=== PATIENT | female | born 1950 | race Caucasian/White ===

== ENCOUNTER → 2017-01-18 | Outpatient (CLI) | payer OTHER ==
[~2017-01-18] MED LIST: ALBUAER19 INH; ASPI-232 PO; BENZ100C84 PO; CALC-20 PO; CARV3.122 PO; CHOL1000 PO; CYCL10TA6 PO; CYCL5TAB PO; DICL1GEL12 TOP; FLUT0.0529 NAE; FLUT0.15 NAE; GABA-113 PO; HYDR25TA4 PO; INSDGI SC; LISI-729 PO; LYSI500T4 PO; MEGA RED PO; METF1000 PO; MULT-884 PO; NF34 TOP; NVLG SC; OMEP40CA PO; OMEP40CA41 PO; REPA2TAB12 PO; TRAM-10 PO; VALA1TAB31 PO; VNTHFA/IN INH
--- NOTE | 2017-01-18 13:05 | MAMMOGRAPHY REPORT ---
BILATERAL DIGITAL SCREENING MAMMOGRAM WITH CAD: 01/18/2017 CLINICAL HISTORY: Routine screening. Patient has no complaints. TECHNIQUE: Current study was also evaluated with a Computer Aided Detection (CAD) system. Bilatera l CC and MLO and XCCL views were obtained. COMPARISON: Comparison is made to exams dated: 01/13/2016 mammogram, 12/15/2014 mammogram, 12/12/2013 mammogram, 12/09/2012 mammogram, 12/04/2011 mammogram, and 12/01/2010 mammogram - [facility] enter. BREAST COMPOSITION: The tissue of both breasts is almost entirely fatty. FINDINGS: No suspicious masses, calcifications, or areas of architectural distortion are noted in e ither breast. There has been no significant interval change compared to prior exams. Scattered bilat eral benign-appearing calcifications are not significantly changed. IMPRESSION: ACR BI-RADS CATEGORY 2: BENIGN There is no mammographic evidence of malignancy. A 1 year screening mammogram is recommended. The p atient will receive written notification of the results. Approximately 10% of breast cancers are not detected with mammography. A negative mammographic repor t should not delay biopsy if a clinically suggestive mass is present. Sury Whalen M.D. /:01/18/2017 11:29:32 Bdr: Chaya MARTINEZ(Marlon)(Romeo), [facility] letter sent: Normal 1/2 BI-RADS Code: ACR BI-RADS Category 2: Benign
== END | disposition home or self-care (01) ==
LOC: C.MAMM 10:54
PROVIDERS: ATTEND Physician Assistant
DX: Z12.31 Encounter for screening mammogram for malignant neoplasm of breast (principal)

== ENCOUNTER → 2017-02-27 | Outpatient (CLI) | payer OTHER | END | disposition home or self-care (01) | LOC: C.RDSM 13:42 | PROVIDERS: ATTEND Physical Medicine & Rehabilitation Sports Medicine | DX: M25.561 Pain in right knee (principal) ==

== ENCOUNTER → 2017-07-12 | Day surgery (SDC) | payer OTHER ==
[2017-07-02 10:28] VITALS: Ht 165.1 cm; Wt 121.4 kg
[~2017-07-12] VITALS: Ht 165.1 cm; Wt 121.4 kg
[~2017-07-12] MED LIST changes: -ALBUAER19 INH; +BUPIVACAINE 0.25% 2.5MG/ML PF 10 ML VIAL ONE; -CYCL10TA6 PO; -FLUT0.0529 NAE; +LIDOCAINE HCL 1% MPF 5 ML VIAL ONE; -OMEP40CA PO; -REPA2TAB12 PO
--- NOTE | 2017-07-12 14:08 | History & Physical Bridge - SC ---
H&P Re-Evaluation Bridge Note: I have examined the patient, reviewed the History & Physical and in the interval since the performance of the History & Physical I have noted the following changes of clinical significance: No changes noted
[2017-07-12 14:40] VITALS: TEMP 36.6
[2017-07-12 14:56] VITALS: BP 153/85; PULSE 70; O2SAT 96
--- NOTE | 2017-07-12 14:57 | OPERATIVE REPORT ---
DATE OF OPERATION: 07/12/2017 PREOPERATIVE DIAGNOSIS: Lumbar spondylolisthesis L3-4, chronic low back pain, bilateral L4-L5 facet arthropathy. POSTOPERATIVE DIAGNOSIS: Same. PROCEDURE: Bilateral L4-L5 medial branch blocks under fluoroscopic guidance. SURGEON: Dr. Sam Elizondo. INDICATIONS: The patient is a 66-year-old white female who presents today with chronic low back pain and it is felt to be caused by a facet arthropathy which was noticeable on MRI at L4-L5. She presents today for medial branch blocks to confirm this is indeed the pain generator of the pain in her back. She notes some improvement in pain with the use of the Warm and Form brace. PHYSICAL EXAMINATION: GENERAL: Pleasant female seated comfortably. MUSCULOSKELETAL: She has tenderness to palpation at L4-L5, worse with extension. She has no radiating pain. No focal weakness. Negative Costa sign of her right upper extremity. CONSENT: Verbal and written consent was obtained from the patient. Risks and benefits were reviewed. Risks include but are not limited to abscess and allergic reaction. The patient wishes to proceed. PROCEDURE: The patient was taken back to the special procedures room of the [facility]. She was maintained in a prone position. Backside was cleansed with Betadine x3 and a dry sterile dressing was applied. Fluoroscope was used to identify the left L4 transverse process junction and the left L5 transverse process junction. The overlying skin was anesthetized with 1.25 mL of lidocaine 1% with a 25 gauge 1.5-inch needle. A 22 gauge 5 inch Tuohy needle was then directed down to the target, the L4 transverse process junction and the L5 transverse process junction under fluoroscopic guidance. She then underwent injection after negative aspiration, 1 mL of bupivacaine 0.25% at each site. Then, the right L4 transverse process junction and the right L5 transverse process junctions were fluoroscopically identified. Overlying skin was anesthetized with 1.25 mL of lidocaine 1% with a 25 gauge 1.5-inch needle. A 22 gauge 5 inch needle was then directed down to each bony target at the right L4 transverse process junction and the right L5 transverse process junction and then anesthetized with 1 mL of bupivacaine 0.25%. Injection was well tolerated. DISPOSITION: 1. The patient is taken out into the discharge recovery area where she will be discharged home once discharge criteria have been met. 2. Follow up in the [facility] office in 2-4 weeks. I attest to the content of the Intraoperative Record and any orders documented therein. Any exception s are noted below.
--- NOTE | 2017-07-12 15:08 | Discharge Instructions ---
Discharge Instructions Date of Service Jul 12, 2017. Visit Reason for Visit: Lumbar Spondylosis Discharge Discharge Diagnosis / Problem: low back pain Discharge Goals Goal(s): Decrease discomfort, Improve function Activity Recommendations Activity Limitations: resume your previous activity Anesthesia . Post Anesthesia Instructions: If you have had General Anesthesia or IV Sedation: * Do not drive today. * Resume driving when surgeon permits. * Do not make important decisions or sign legal documents today. * Call surgeon for: 1. Temperature elevations greater than 101 degrees F. 2. Uncontrollable pain. 3. Excessive bleeding. 4. Persistent nausea and vomiting. 5. Medication intolerance (nausea, vomiting or rash). * For nausea and vomiting use only clear liquids such as: tea, soda, bouillon until nausea subsides, then gradually increase diet as tolerated. * If you have any concerns or questions, call your surgeon's office. If physician is unavailable and it is an emergency, call 911 or go to the nearest emergency room. . Diet Recommendations Recommended Home Diet: resume previous diet Procedures Procedures Performed: BILATERAL L4-5 MEDIAL BRANCH BLOCKS Pending Studies Studies pending at discharge: no Medical Emergencies . Who to Call and When: Medical Emergencies: If at any time you feel your situation is an emergency, please call 911 immediately. . Non-Emergent Contact Non-Emergency issues call your: Specialist . . "Provider Documentation" section prepared by Sam Elizondo. .
== END | disposition home or self-care (01) ==
LOC: X.SURG 13:24
PROVIDERS: ATTEND Physical Medicine & Rehabilitation
DX: M43.16 Spondylolisthesis, lumbar region (principal); G89.29 Other chronic pain; M54.5 Low back pain; M46.96 Unspecified inflammatory spondylopathy, lumbar region; M47.22 Other spondylosis with radiculopathy, cervical region; E11.9 Type 2 diabetes mellitus without complications

== ENCOUNTER → 2017-09-20 | Day surgery (SDC) | payer OTHER ==
[2017-08-20 13:50] VITALS: Ht 165.1 cm; Wt 121.4 kg
[~2017-09-20] VITALS: Ht 165.1 cm; Wt 121.4 kg
[~2017-09-20] MED LIST changes: -LIDOCAINE HCL 1% MPF 5 ML VIAL ONE; +LIDOCAINE MPF 1% INJ 30 ML SDV (L&D) INFIL ONE
[2017-09-20 13:53] VITALS: TEMP 36.8
--- NOTE | 2017-09-20 14:01 | Discharge Instructions ---
Discharge Instructions Date of Service Sep 20, 2017. Visit Reason for Visit: Low Back Pain Discharge Discharge Diagnosis / Problem: low back pain Discharge Goals Goal(s): Decrease discomfort, Improve function Activity Recommendations Activity Limitations: resume your previous activity Anesthesia . Post Anesthesia Instructions: If you have had General Anesthesia or IV Sedation: * Do not drive today. * Resume driving when surgeon permits. * Do not make important decisions or sign legal documents today. * Call surgeon for: 1. Temperature elevations greater than 101 degrees F. 2. Uncontrollable pain. 3. Excessive bleeding. 4. Persistent nausea and vomiting. 5. Medication intolerance (nausea, vomiting or rash). * For nausea and vomiting use only clear liquids such as: tea, soda, bouillon until nausea subsides, then gradually increase diet as tolerated. * If you have any concerns or questions, call your surgeon's office. If physician is unavailable and it is an emergency, call 911 or go to the nearest emergency room. . Diet Recommendations Recommended Home Diet: no limitations Procedures Procedures Performed: Bilateral L4-5 Radio Frequency Denervation Pending Studies Studies pending at discharge: no Medical Emergencies . Who to Call and When: Medical Emergencies: If at any time you feel your situation is an emergency, please call 911 immediately. . Non-Emergent Contact Non-Emergency issues call your: Specialist . . "Provider Documentation" section prepared by Sam Elizondo. .
[2017-09-20 14:09] VITALS: BP 163/85; PULSE 64; O2SAT 95
--- NOTE | 2017-09-20 14:28 | OPERATIVE REPORT ---
DATE OF OPERATION: 09/20/2017 PREOPERATIVE DIAGNOSIS: Lumbar spondylolisthesis, lumbar facet joint pain bilaterally L4-L5. POSTOPERATIVE DIAGNOSIS: Same. PROCEDURE: Bilateral L4-L5 radiofrequency facet denervation under fluoroscopic guidance. INDICATIONS: The patient is a 66-year-old white female who underwent branch blocks and noticed that she had a positive diagnostic response to the branch blocks. The pain has returned and is problematic to her. She presents today for denervation after a diagnostic confirmation that this indeed generates significant pain in the back for her. PHYSICAL EXAMINATION: Pleasant female seated comfortably. She has some point tenderness to palpation of her lower lumbar spine. She has no issues with forward flexion or extension. She has normal motor examination and sensory examination of her lower extremities. CONSENT: Verbal and written consent was obtained from the patient. Risks and benefits were reviewed. Risks include but are not limited to abscess, allergic reaction and denervation. She wishes to proceed. PROCEDURE: The patient was taken back to the special procedures room of the [facility] where she was maintained in a prone position. Backside was cleansed with Betadine x3 and a dry sterile dressing was applied. Fluoroscope was used to identify the left L4 transverse process junction and the left L5 transverse process junction. Overlying skin was anesthetized with 1.5 mL at each site. She then underwent placement of a 22 gauge 10 cm Leonore needle at each site contacting bone. The locations were moved to elicit sensory stimulation at 0.2 volts at each site. Motor stimulation provoked localized paraspinal spasms, but nothing radiating down the leg. She then underwent anesthetization of 1 mL lidocaine 1% at each site and then denervation 100 seconds, 80 degrees x2 at each site first at L4, then L5 and then this was followed by injection of 1 mL of bupivacaine 0.25% at each site. The right L4 transverse process, the right L5 transverse process junction, which was fused to the sacral, were then fluoroscopically identified. Overlying skin was then anesthetized with 1.5 mL at each site with a 25 gauge 1.5-inch needle. A 22 gauge 10 cm Neida needle contacted the target at each site. It was manipulated so that sensory stimulation was 0.2 volts at L4 and 0.3 volts at L5. Motor stimulation did not provoke anything but localized paraspinal twitching, nothing radiating or moving down the leg. She then underwent anesthetization with 1 mL lidocaine 1% and underwent radiofrequency denervation 80 degrees 100 seconds x2 at each site followed by anesthetization with an additional 1 mL of bupivacaine 0.25%. The procedure was well tolerated throughout. DISPOSITION: 1. The patient is taken out into the discharge recovery area where she will be discharged home once discharge criteria have been met. 2. Follow up in the [facility] office in 4 weeks' time. I attest to the content of the Intraoperative Record and any orders documented therein. Any exception s are noted below.
== END | disposition home or self-care (01) ==
LOC: X.SURG 12:05
PROVIDERS: ATTEND Physical Medicine & Rehabilitation
DX: M43.16 Spondylolisthesis, lumbar region (principal)

== ENCOUNTER → 2017-11-15 | Day surgery (SDC) | payer OTHER ==
[2017-10-31 10:56] VITALS: Ht 165.1 cm; Wt 121.4 kg
[~2017-11-15] VITALS: Ht 165.1 cm; Wt 121.4 kg
[~2017-11-15] MED LIST changes: +IOPAMIDOL INJ 61% 15 ML VIAL ONE; +LIDOCAINE HCL 1% MPF 5 ML VIAL ONE; -LIDOCAINE MPF 1% INJ 30 ML SDV (L&D) INFIL ONE
--- NOTE | 2017-11-15 14:32 | [facility] Post Operative Brief Note ---
Immediate Operative Summary Operative Date Nov 15, 2017. Pre-Operative Diagnosis L3-L4 SPONDYLOLISTHESIS BILATERAL L4-L5 FACET ARTHOPATHY, IMPROVED BILATERAL SACROILIITIS Post-Operative Diagnosis L3-L4 SPONDYLOLISTHESIS BILATERAL L4-L5 FACET ARTHOPATHY, IMPROVED BILATERAL SACROILIITIS Procedure(s) Performed Bilateral Sacroiliac Joint Injection Surgeon DR. Poonam DIANA Binder Layer Surgeon(s) None Estimated Blood Loss NONE Findings Consistent with Post-Op Diagnosis Specimens NA Drains None Anesthesia Type Local Complication(s) none Disposition Disposition:
--- NOTE | 2017-11-15 14:34 | Discharge Instructions ---
Discharge Instructions Date of Service Nov 15, 2017. Visit Reason for Visit: Sacroiliitis Discharge Discharge Diagnosis / Problem: Low back pain Discharge Goals Goal(s): Decrease discomfort, Improve function Activity Recommendations Activity Limitations: resume your previous activity Anesthesia . Post Anesthesia Instructions: If you have had General Anesthesia or IV Sedation: * Do not drive today. * Resume driving when surgeon permits. * Do not make important decisions or sign legal documents today. * Call surgeon for: 1. Temperature elevations greater than 101 degrees F. 2. Uncontrollable pain. 3. Excessive bleeding. 4. Persistent nausea and vomiting. 5. Medication intolerance (nausea, vomiting or rash). * For nausea and vomiting use only clear liquids such as: tea, soda, bouillon until nausea subsides, then gradually increase diet as tolerated. * If you have any concerns or questions, call your surgeon's office. If physician is unavailable and it is an emergency, call 911 or go to the nearest emergency room. . Diet Recommendations Recommended Home Diet: resume previous diet Procedures Procedures Performed: Bilateral Sacroiliac Joint Injection Pending Studies Studies pending at discharge: no Medical Emergencies . Who to Call and When: Medical Emergencies: If at any time you feel your situation is an emergency, please call 911 immediately. . Non-Emergent Contact Non-Emergency issues call your: Specialist . . "Provider Documentation" section prepared by Sam Elizondo. .
[2017-11-15 14:37] VITALS: TEMP 36.8
[2017-11-15 14:59] VITALS: BP 162/83; PULSE 78; O2SAT 98
--- NOTE | 2017-11-15 15:30 | OPERATIVE REPORT ---
DATE OF OPERATION: 11/15/2017 PREOPERATIVE DIAGNOSIS: Bilateral sacroiliitis. POSTOPERATIVE DIAGNOSIS: Same. PROCEDURE: Bilateral sacroiliac joint injections under fluoroscopic guidance. INDICATIONS: The patient is a 66-year-old white female who had bilateral L4-L5 branch blocks done and a denervation, had 75% relief of her pain. She now reports that the pain is lower than that in the sacral area localizing the sacroiliac joint, presents today for injections to provide her with relief of the sacroiliitis that she is having. PHYSICAL EXAMINATION: Pleasant female seated comfortably. She has tenderness to palpation of the SI joints bilaterally, worse with extension and a modified Carlos maneuver. She had normal motor and sensory exam with a negative seated straight leg raise. CONSENT: Verbal and written consent was obtained from the patient. Risks and benefits were reviewed. Risks include but are not limited to abscess and allergic reaction. The patient wishes to proceed. DESCRIPTION OF PROCEDURE: The patient was taken back to the special procedures room of the [facility] where she was maintained in a prone position. Backside was cleansed with Betadine x3 and a dry sterile dressing was applied. Fluoroscope was used to identify the left SI joint. Overlying skin was anesthetized with 2.5 mL of lidocaine 1% with a 25 gauge 1.5-inch needle. A 25 gauge 3.5 inch spinal needle was then directed down into the joint. Under fluoroscopic guidance, it entered the joint. The patient then underwent injection of Isovue 0.25 mL which showed it to be intraarticular. This was then followed by injection after negative aspiration of bupivacaine 0.25% 1.5 mL and 40 mg Depo-Medrol. Injection was well tolerated. The right SI joint was then fluoroscopically identified with the overlying skin and anesthetized with 2.5 mL of lidocaine 1% with a 25 gauge 1.5-inch needle. A 25 gauge 3.5 inch spinal needle was then directed into the joint. As it entered the joint under fluoroscopic guidance, she was then injected with 0.25 mL of Isovue 300 contrast which showed it to be intraarticular. This was then followed up with injection of 40 mg of Depo-Medrol and 1.5 mL of bupivacaine 0.25%. Injection was well tolerated. DISPOSITION: 1. The patient is taken out into the discharge recovery area where she will be discharged home once discharge criteria have been met. 2. Follow up in the [facility] office in 4 weeks' time. I attest to the content of the Intraoperative Record and any orders documented therein. Any exception s are noted below.
== END | disposition home or self-care (01) ==
LOC: X.SURG 12:58
PROVIDERS: ATTEND Physical Medicine & Rehabilitation
DX: M46.1 Sacroiliitis, not elsewhere classified (principal); M43.16 Spondylolisthesis, lumbar region; M12.9 Arthropathy, unspecified; M54.5 Low back pain; G89.29 Other chronic pain; Z79.82 Long term (current) use of aspirin; Z79.4 Long term (current) use of insulin

== ENCOUNTER → 2018-01-14 | Day surgery (SDC) | payer OTHER ==
[2018-01-08 09:03] VITALS: Ht 165.1 cm; Wt 124.1 kg
[~2018-01-14] VITALS: Ht 165.1 cm; Wt 124.1 kg
[~2018-01-14] MED LIST changes: -BUPIVACAINE 0.25% 2.5MG/ML PF 10 ML VIAL ONE; -IOPAMIDOL INJ 61% 15 ML VIAL ONE; -LIDOCAINE HCL 1% MPF 5 ML VIAL ONE; +LIDOCAINE HCL 2% 2 ML VIAL (20MG/ML) ONE; +MIDAZOLAM HCL 1 MG/ML 2ML VIAL ONE; +PROPOFOL IV EMULSION 10 MG/ML 20 ML VIAL IV ONE; +SODIUM CHLORIDE 0.9% 500ML 500 ML IV ONE
--- NOTE | 2018-01-14 08:54 | Endo History and Physical ---
History & Physical Date of Service: Jan 14, 2018. Chief Complaint: screening Referring Physician: Dr. Delvis Colon History of Present Illness Screening Past Medical History Diabetes, Arthritis, Hypertension Past Surgical History Hx Cardiac Surgery: No Hx Internal Defibrillator: No Hx Pacemaker: No Hx Abdominal Surgery: Yes () Hx of Implantable Prosthesis: No Hx Post-Op Nausea and Vomiting: No Hx Cancer Surgery: No Hx Thoracic Surgery: No Hx Orthopedic: No Hx Urinary Tract Surgery: No Family History None Social History Smoking Status: Never Smoker Hx Substance Use: No Hx Alcohol Use: Yes (OCCASIONAL) Allergies Coded Allergies: Atorvastatin (Unverified Allergy, Unknown, SEVERE LEG CRAMPS, 01/08/18) Pravastatin (Verified Allergy, Unknown, SEVERE LEG CRAMPS, 01/08/18) Current Medications Reported Home Medications Medications Dose Route/Sig Max Daily Dose Days Date Category Dose Instructions Neurontin (Gabapentin) 300 Mg Cap 300 Mg PO TID 07/02/17 Reported Voltaren 1% Top Gel (Diclofenac Sodium (Topical)) 1 % Gel 1 Dose TOP BID 07/02/17 Reported Vitamin D3 (Cholecalciferol) 1,000 Unit Tab 1 Tab PO QAM 07/02/17 Reported Ventolin Hfa (Albuterol) 200 Puffs/62051 Mcg Aers 2-4 Puffs INH Q6H PRN 07/02/17 Reported Flonase Allergy Relief (Fluticasone Propionate (Nasal)) 50 Mcg/Act Spr 2 Sprays ROGERIO HS 07/02/17 Reported Novolog (Insulin Aspart) 100 Units/Ml Inj 0 SC AC 07/02/17 Reported PER SLIDING SCALE Lantus (Insulin Glargine) 100 Unit/Ml Inj 36 Units SC QPM 07/02/17 Reported Ultram (Tramadol HCl) 50 Mg Tab 50 Mg PO Q4H PRN 07/02/17 Reported Tessalon Perles (Benzonatate) 100 Mg Cap 100 Mg PO TID PRN 07/02/17 Reported Valtrex (Valacyclovir Hcl) 1 Gm Tab 2 Tabs PO BID PRN 07/02/17 Reported Prilosec (Omeprazole) 40 Mg Cap 40 Mg PO BID 07/02/17 Reported Flexeril (Cyclobenzaprine Hcl) 5 Mg Tab 5 Mg PO HS 07/02/17 Reported PRN Multi Vitamin Daily (Multiple Vitamin) 1 Tab Tab 1 Tab PO QAM 03/08/15 Reported Calcium 600 + D (Calcium Carbonate-Vitamin D) 1 Tab Tab 1 Tab PO BID 03/08/15 Reported Aspir-81 (Aspirin) 81 Mg Tab 81 Mg PO QPM 03/08/15 Reported [Krishna Red] 1 Tab PO QAM 03/08/15 Reported L-Lysine (Lysine) 500 Mg Tab 1 Tab PO QAM 03/08/15 Reported Clobetasol Propionate 0.05 % Oint 1 Dose TOP BID PRN 03/08/15 Reported Glucophage (Metformin Hcl) 1,000 Mg Tab 1,000 Mg PO BID 03/08/15 Reported Hctz (Hydrochlorothiazide) 25 Mg Tab 25 Mg PO QAM 03/08/15 Reported Coreg (Carvedilol) 3.125 Mg Tab 3.125 Mg PO BID 03/08/15 Reported Prinivil (Lisinopril) 5 Mg Tab 5 Mg PO QAM 03/08/15 Reported Vital Signs Weight (Kilograms): 124.09 Height (Feet): 5 Height (Inches): 5 Date Time Temp Pulse Resp B/P (MAP) Pulse Ox O2 Delivery O2 Flow Rate FiO2 01/14/18 08:15 36.3 84 20 175/91 (119) 96 Room Air Physical Exam General Appearance: no apparent distress Respiratory/Chest: Auscultation: breath sounds normal Cardiovascular: Heart Auscultation: RRR Abdomen: Inspection & Palpation: soft Assessment and Plan CRC screening - cscopy
--- NOTE | 2018-01-14 10:29 | Discharge Instructions ---
Endoscopy Patient Instructions Date / Procedure(s) Performed Jan 14, 2018. Colonoscopy Allergy Information Coded Allergies: Atorvastatin (Unverified Allergy, Unknown, SEVERE LEG CRAMPS, 01/08/18) Pravastatin (Verified Allergy, Unknown, SEVERE LEG CRAMPS, 01/08/18) Discharge Date / Findings Jan 14, 2018. Incomplete exam due to tortuous colon Diverticulosis. Hemorrhoids. Diminutive polyp Medication Instructions Stopped Medication(s): last dose Metformin was ,took ASA 01/13 Provider Instructions Activity Restrictions - No exercising or heavy lifting for 24 hours. - Do not drink alcohol the day of the procedure. - Do not drive a car or operate machinery until the day after the procedure. - Do not make any important decisions or sign important papers in 24 hours after the procedure. Following Day: - Return to full activity which may include returning to work/school. Diet Start your diet with liquids and light foods (jello, soup, juice, toast). Then eat your usual diet if not nauseated. Treatment For Common After Affects For mild abdominal pain, bloating, or excessive gas: - Rest - Eat lightly - Lie on right side Follow-Up Information Follow-up with Dr. Delvis Colon as scheduled Anesthesia Information What You Should Know You have had a procedure that required some medicine to reduce anxiety and discomfort. This treatment is called moderate sedation. After receiving the treatment, you may be sleepy, but you will be able to breathe on your own. The effects of the treatment may last for several hours. Follow these instructions along with Activity/Diet recommendations noted above: * Do NOT do anything where dizziness or clumsiness would be dangerous. * Rest quietly at home today, then you can be up and about tomorrow. * Have a responsible person stay with you the rest of today. * You may have had an I.V. today. If so, you may take the dressing off later today. Recommendations Call your doctor if: * Trouble breathing * Continuous vomiting for more than 24 hours * Temperature above 101 degrees * Severe abdominal pain or bloating * Pain not relieved by pain medicine ordered * There is increased drainage or redness from any incision * A large amount of rectal bleeding greater than 2-3 tablespoons. (If you had a polyp/s removed or have hemorrhoids, a small amount of blood - from the rectum is to be expected.) * You have any unanswered questions or concerns. IN THE EVENT OF A SERIOUS EMERGENCY, GO TO THE NEAREST EMERGENCY ROOM Your discharge instructions were prepared by provider Salazar Elliott. Patient Instructions Signature Page Monalisa Chavez Patient (or Guardian) Signature/Date: I have read and understand the instructions given to me by my caregivers. Caregiver/RN/Doctor Signature/Date: The above-named patient and/or guardian has received patient instructions on this date. + Original Patient Signature Page (only) stays with chart. Please make copy for patient.
--- NOTE | 2018-01-14 10:34 | GI REPORT ---
Procedure Date: 01/14/2018 8:23 AM Procedure: Colonoscopy Indications: Screening for colorectal malignant neoplasm Medicines: See the Anesthesia note for documentation of the administered medications Complications: No immediate complications. Estimated Blood Loss: Estimated blood loss: none. Procedure: Pre-Anesthesia Assessment: - ASA Grade Assessment: III - A patient with severe systemic disease. After I obtained informed consent, the scope was passed under direct vision. Throughout the procedure, the patient's blood pressure, pulse, and oxygen saturations were monitored continuously. The scope was introduced through the anus and advanced to the ascending colon. The patient tolerated the procedure well. The quality of the bowel preparation was fair. The colonoscopy was extremely difficult due to significant looping; the scope could only be advanced to the ascending colon. Findings: The perianal and digital rectal examinations were significant for large external non reducible hemorrhoids. Multiple small and large-mouthed diverticula were found in the entire colon. A 3 mm polyp was found in the hepatic flexure. The polyp was sessile. The polyp was removed with a cold snare. Resection and retrieval were complete. The exam was otherwise without abnormality. The colon was not entirely examined - the scope could only be advanced to the proximal ascending colon. Impression: - Preparation of the colon was fair. - Diverticulosis in the entire examined colon. - One 3 mm polyp at the hepatic flexure, removed with a cold snare. Resected and retrieved. - The examination was otherwise normal, but the scope was not advanced into the cecum. Recommendation: - Discharge patient to home. Discussed management options with pt - discussed possibility of CT colonography at a later date, as well as r/b/i of this option; pt did not want this option. Will plan for Cologuard; if positive, pt will need repeat attempt at cscopy. If negative Cologuard, would consider surveillance exam in 1-3 years. Salazar Henao M.D. Salazar Henao MD 01/14/2018 10:33:47 AM This report has been signed electronically. Note Initiated On: 01/14/2018 8:23 AM I attest to the content of the Intraoperative Record and orders documented therein, exceptions below
--- NOTE | 2018-01-14 10:36 | Anesthesiology Progress Note ---
Anesthesia Post Op Note Date & Time Jan 14, 2018 at 10:36 Vital Signs Pain Intensity: 0 Vital Signs Past 12 Hours Date Time Temp Pulse Resp B/P (MAP) Pulse Ox O2 Delivery O2 Flow Rate FiO2 01/14/18 10:23 66 20 104/73 (83) 97 Room Air 01/14/18 10:08 65 20 107/66 (80) 100 Room Air 01/14/18 08:15 36.3 84 20 175/91 (119) 96 Room Air Notes Mental Status: alert / awake / arousable, participated in evaluation Pt Amnestic to Procedure: Yes Nausea / Vomiting: adequately controlled Pain: adequately controlled Airway Patency, RR, SpO2: stable & adequate BP & HR: stable & adequate Hydration State: stable & adequate Anesthetic Complications: no major complications apparent
[2018-01-14 10:38] VITALS: BP 131/66; PULSE 61; O2SAT 98
== END | disposition home or self-care (01) ==
LOC: C.GI 07:46
PROVIDERS: ATTEND Internal Medicine Gastroenterology
DX: Z12.11 Encounter for screening for malignant neoplasm of colon (principal); D12.3 Benign neoplasm of transverse colon; K57.30 Diverticulosis of large intestine without perforation or abscess without bleeding; K64.8 Other hemorrhoids; E11.9 Type 2 diabetes mellitus without complications; E78.5 Hyperlipidemia, unspecified; J45.909 Unspecified asthma, uncomplicated; M19.90 Unspecified osteoarthritis, unspecified site; I10 Essential (primary) hypertension; Z88.8 Allergy status to other drugs, medicaments and biological substances; Z79.899 Other long term (current) drug therapy; Z79.4 Long term (current) use of insulin; Z79.82 Long term (current) use of aspirin

== ENCOUNTER → 2018-01-21 | Outpatient (CLI) | payer OTHER ==
[~2018-01-21] MED LIST changes: -LIDOCAINE HCL 2% 2 ML VIAL (20MG/ML) ONE; -MIDAZOLAM HCL 1 MG/ML 2ML VIAL ONE; -PROPOFOL IV EMULSION 10 MG/ML 20 ML VIAL IV ONE; -SODIUM CHLORIDE 0.9% 500ML 500 ML IV ONE
--- NOTE | 2018-01-22 07:38 | MAMMOGRAPHY REPORT ---
BILATERAL DIGITAL SCREENING MAMMOGRAM TOMOSYNTHESIS WITH CAD: 01/21/2018 CLINICAL HISTORY: Routine screening. TECHNIQUE: Breast tomosynthesis in addition to standard 2D mammography was performed. Current study was also evaluated with a Computer Aided Detection (CAD) system. COMPARISON: Comparison is made to exams dated: 01/18/2017 mammogram, 01/13/2016 mammogram, 12/15/2014 m ammogram, 12/12/2013 mammogram, 12/09/2012 mammogram, and 12/04/2011 mammogram - [facility] nter. BREAST COMPOSITION: There are scattered areas of fibroglandular density in both breasts. FINDINGS: There is a 7 mm nodular asymmetry in the medial, posterior right breast, best seen in the CC view, that is increasingly conspicuous comparing to prior mammograms. Although this could represe nt normal overlapping tissue, additional spot compression tomosynthesis views and possible ultrasound are recommended. There are scattered benign-appearing round and rodlike calcifications in the breasts. No other suspi cious mass, architectural distortion or cluster of microcalcifications is seen. IMPRESSION: ACR BI-RADS CATEGORY 0: INCOMPLETE EVALUATION: NEED ADDITIONAL IMAGING EVALUATION The 7 mm nodular asymmetry in the medial, posterior right breast needs additional evaluation. The patient will be called to schedule an appointment. Approximately 10% of breast cancers are not detected with mammography. A negative mammographic report should not delay biopsy if a clinically suggestive mass is present. Rosa Maria Anderson M.D. ay/:01/21/2018 17:10:48 Meter Shop Superintendent: Chaya MARTINEZ(Marlon)(M), [facility] letter sent: Addl Imaging 0 BI-RADS Code: ACR BI-RADS Category 0: Incomplete Evaluation: Need Additional Imaging Evaluation
== END | disposition home or self-care (01) ==
LOC: C.MAMM 11:11
PROVIDERS: ATTEND Physician Assistant
DX: Z12.31 Encounter for screening mammogram for malignant neoplasm of breast (principal); N64.89 Other specified disorders of breast

== ENCOUNTER → 2018-02-07 | Outpatient (CLI) | payer OTHER ==
--- NOTE | 2018-02-08 07:48 | MAMMOGRAPHY REPORT ---
UNILATERAL RIGHT DIGITAL DIAGNOSTIC MAMMOGRAM TOMOSYNTHESIS AND TARGETED RIGHT ULTRASOUND: 02/07/2018 CLINICAL HISTORY: Callback from screening mammogram for right breast asymmetry. TECHNIQUE: Breast tomosynthesis in addition to standard 2D mammography was performed. Spot compress ion right CC and MLO 2D and tomosynthesis images were obtained. COMPARISON: Comparison is made to exams dated: 01/21/2018 mammogram, 01/18/2017 mammogram, 01/13/2016 m ammogram, 12/15/2014 mammogram, 12/12/2013 mammogram, and 12/09/2012 mammogram - [facility] enter. BREAST COMPOSITION: There are scattered areas of fibroglandular density in the right breast. FINDINGS: The previously described asymmetry seen within the right medial breast effaces to a baselin e appearance on the additional spot compression views. Mild nodularity is seen within the right medi al posterior breast on the additional spot compression views which appears similar to multiple prior exams including the 2010 and 2014 exams. Targeted ultrasound was performed of the right medial breast in the region of the right breast asymme try seen on one view only. No suspicious masses or other suspicious sonographic abnormalities are ev ident. IMPRESSION: ACR BI-RADS CATEGORY 2: BENIGN, TARGETED ULTRASOUND ACR BI-RADS CATEGORY 2: BENIGN The right breast asymmetry effaces to a baseline appearance on the additional spot compression views, without corresponding suspicious sonographic abnormality evident. Findings are considered benign gi chino long-term stability and likely represent normal fibroglandular tissue. There is no mammographic or targeted sonographic evidence of malignancy. A 1 year screening mammogram is recommended. The pat ient has been verbally notified of the results. Approximately 10% of breast cancers are not detected with mammography. A negative mammographic report should not delay biopsy if a clinically suggestive mass is present. Sury Whalen M.D. /:02/07/2018 09:50:45 Wire Annealer: Iliana Tamayo, [facility] letter sent: Normal 1/2 BI-RADS Code: ACR BI-RADS Category 2: Benign Ultrasound BI-RADS: ACR BI-RADS Category 2: Benign
== END | disposition home or self-care (01) ==
LOC: C.MAMM 09:27
PROVIDERS: ATTEND Physician Assistant
DX: R92.8 Other abnormal and inconclusive findings on diagnostic imaging of breast (principal)

== ENCOUNTER → 2018-05-02 | Day surgery (SDC) | payer OTHER ==
[2018-05-01 08:32] VITALS: Ht 165.1 cm; Wt 82.3 kg
[~2018-05-02] VITALS: Ht 165.1 cm; Wt 82.3 kg
[~2018-05-02] MED LIST changes: +BUPIVACAINE 0.25% 30 ML VIAL ONE; +LIDOCAINE HCL 1% 20 ML VIAL ONE
--- NOTE | 2018-05-02 14:13 | [facility] Post Operative Brief Note ---
Immediate Operative Summary Operative Date May 02, 2018. Pre-Operative Diagnosis Bilateral L5-S1 facet arthropathy Post-Operative Diagnosis Same Procedure(s) Performed Bilateral L5-S1 Radio Frequency Denervations Surgeon Dr Elizondo Sand Polisher Surgeon(s) None Estimated Blood Loss 0 Findings Consistent with Post-Op Diagnosis Specimens NA Drains None Anesthesia Type Local Complication(s) none Disposition Disposition:
--- NOTE | 2018-05-02 14:14 | Discharge Instructions ---
Discharge Instructions Date of Service May 02, 2018. Visit Reason for Visit: Low Back Pain, Lumbar Facet Joint Pain Discharge Discharge Diagnosis / Problem: Low back pain Discharge Goals Goal(s): Decrease discomfort, Improve function Activity Recommendations Activity Limitations: resume your previous activity Anesthesia . Post Anesthesia Instructions: If you have had General Anesthesia or IV Sedation: * Do not drive today. * Resume driving when surgeon permits. * Do not make important decisions or sign legal documents today. * Call surgeon for: 1. Temperature elevations greater than 101 degrees F. 2. Uncontrollable pain. 3. Excessive bleeding. 4. Persistent nausea and vomiting. 5. Medication intolerance (nausea, vomiting or rash). * For nausea and vomiting use only clear liquids such as: tea, soda, bouillon until nausea subsides, then gradually increase diet as tolerated. * If you have any concerns or questions, call your surgeon's office. If physician is unavailable and it is an emergency, call 911 or go to the nearest emergency room. . Diet Recommendations Recommended Home Diet: resume previous diet Procedures Procedures Performed: Bilateral L5-S1 Radio Frequency Denervations Pending Studies Studies pending at discharge: no Medical Emergencies . Who to Call and When: Medical Emergencies: If at any time you feel your situation is an emergency, please call 911 immediately. . Non-Emergent Contact Non-Emergency issues call your: Specialist . . "Provider Documentation" section prepared by Sam Elizondo. .
[2018-05-02 14:30] VITALS: TEMP 36.5
[2018-05-02 14:41] VITALS: BP 141/79; PULSE 72; O2SAT 100
--- NOTE | 2018-05-02 15:02 | OPERATIVE REPORT ---
DATE OF OPERATION: 05/02/2018 PREOPERATIVE DIAGNOSIS: Chronic low back pain, bilateral L5-S1 facet arthropathy. POSTOPERATIVE DIAGNOSIS: Chronic low back pain, bilateral L5-S1 facet arthropathy. PROCEDURE: Bilateral L5-S1 facet radiofrequency denervation. INDICATIONS: The patient is a 67-year-old white female who had a positive block to bilateral L5-S1 medial branch blocks, felt great for 6-8 hours following the block and 80% relief from the pain. This is a diagnostic test that indicates the facet joints or generator of her pain. She presents today for denervation to provide her with longer lasting relief on closer to 10 months to a year of relief. PHYSICAL EXAMINATION: Pleasant female seated comfortably. She has some point tenderness to palpation of the lower lumbar facet areas. It is worse with extension, extension rotation. She had normal motor and sensory exam. CONSENT: Verbal and written consent was obtained from the patient. Risks and benefits were reviewed. Risks include but are not limited to abscess and allergic reaction, nerve denervation. She wishes to proceed. DESCRIPTION OF PROCEDURE: The patient was taken back to the special procedures room of [facility]. She was maintained in a prone position. Backside was cleansed with Betadine x3 and a dry sterile dressing was applied. Fluoroscope was used to identify fluoroscopically the L5 transverse process and the sacral ala on the left side. Overlying skin was anesthetized with 1.5 mL of lidocaine 1% with a 25-gauge 1.5-inch needle. A 22-gauge 10 cm Neida needle contacted the bony target. It was maneuvered so that sensory stimulation was provoked at 0.3 volts or less at both sites. Motor stimulation provoked localized twitching, but nothing radiating down the leg. Each site was then additionally anesthetized with 1 mL lidocaine 1% and then denervated 80 degrees 100 seconds x2 at each site and then this was followed up by injection of additional 1 mL of bupivacaine 0.25% at each site. The right L5 transverse process junction on the right sacral ala was then fluoroscopically identified. The overlying skin was anesthetized with 1.5 mL of lidocaine 1% with a 25-gauge 1.5-inch needle at each site. A 22-gauge 10 cm Neida needle was then placed contacting bone at each site and then sensory stimulation provokes findings of 0.2 volts at each site or less. Motor stimulation provoked localized paraspinal spasms. No movement down the leg or twitching or pain down the left knee. She then underwent anesthetization with 1 mL lidocaine 1% at each site and then denervation 80 degrees at 100 seconds x2 at each site followed by bupivacaine 0.25% 1 mL. Procedure was well tolerated. DISPOSITION: 1. The patient is taken out into the discharge recovery area where she will be discharged home once discharge criteria have been met. 2. Follow up in the [facility] office in 4 weeks' time. I attest to the content of the Intraoperative Record and any orders documented therein. Any exception s are noted below.
== END | disposition home or self-care (01) ==
LOC: X.SURG 12:37
PROVIDERS: ATTEND Physical Medicine & Rehabilitation
DX: M51.86 Other intervertebral disc disorders, lumbar region (principal); M54.5 Low back pain; Z79.82 Long term (current) use of aspirin